=== PATIENT | male | born 1990 | race Caucasian/White ===

== ENCOUNTER 2018-01-01 20:22 | Emergency (ER) | payer OTHER ==
[2018-01-02] MEDS: HYDROCODONE/APAP (5/325) TAB PO (00:17)
== END 2018-01-02 00:43 | disposition home or self-care (01) ==
LOC: FTE 01-02 00:43
DX: S00.93XA Contusion of unspecified part of head, initial encounter (principal); F17.210 Nicotine dependence, cigarettes, uncomplicated; Y08.89XA Assault by other specified means, initial encounter
CPT/HCPCS: 70260; 99283-25

== ENCOUNTER 2018-01-15 06:43 | Emergency (ER) | payer OTHER ==
[2018-01-15] MEDS: CYCLOBENZAPRINE 10 MG TAB PO (07:20)
== END 2018-01-15 08:35 | disposition home or self-care (01) ==
LOC: FTE 06:43
DX: M43.6 Torticollis (principal); J03.80 Acute tonsillitis due to other specified organisms; B97.89 Other viral agents as the cause of diseases classified elsewhere; F17.210 Nicotine dependence, cigarettes, uncomplicated
CPT/HCPCS: 99283; Z7502

== ENCOUNTER 2019-02-11 19:23 | Emergency (ER) | payer OTHER ==
[2019-02-11] MEDS: HYDROCODONE/APAP (5/325) TAB PO (20:00)
== END 2019-02-11 21:31 | disposition home or self-care (01) ==
LOC: FTE 19:23
DX: S00.93XA Contusion of unspecified part of head, initial encounter (principal); R51 Headache; W10.9XXA Fall (on) (from) unspecified stairs and steps, initial encounter; Y92.89 Other specified places as the place of occurrence of the external cause; Z87.891 Personal history of nicotine dependence
CPT/HCPCS: 70450; 72125; 99284-25